=== PATIENT | female | born 1950 | race Caucasian/White ===

== ENCOUNTER 2019-11-07 20:02 | Emergency (ER) | payer MEDICARE, SELFPAY ==
[2019-11-07] VITALS (7 sets, daily range): BP systolic 107–119; BP diastolic 69–81; PULSE 106–114; RESP 15–22; TEMP 37.1–37.2; O2SAT 93–100
--- NOTE | ~2019-11-07 | XR_ITS ---
EXAMINATION: XR chest 1V portable INDICATION: Cough and shortness of breath TECHNIQUE: Portable AP chest at 2002 hours COMPARISON: None available FINDINGS: There are airspace opacities of the right lower lobe. There is subsegmental atelectasis of the left lung base. There is no pleural effusion or pneumothorax. The heart size is normal. Surgical clips are noted in the neck. Cholecystectomy clips are present in the right upper quadrant. Punctate calcifications of the left upper quadrant are consistent with chronic pancreatitis. IMPRESSION: 1. Right lower lobe pneumonia. Reviewed, dictated and finalized at location A.
--- NOTE | ~2019-11-07 | CT_ITS ---
EXAMINATION: CT abdomen pelvis w con INDICATION: Upper abdominal pain TECHNIQUE: Computed tomographic images of the abdomen and pelvis were obtained after the administrati on of 100 cc of Omnipaque 350 intravenous contrast. The dose-length product (DLP) was 323.15 mGy-cm. Automated exposure control and iterative reconstruction technique were employed. COMPARISON: 06/04/2018 FINDINGS: There are airspace opacities of the right lower lobe. The heart size is normal. There has b een interval cholecystectomy. There is mild enlargement of the common bile duct and central intrahepa tic ducts which is likely due to post cholecystectomy state. There is a 2.7 cm cyst of the right hepa tic lobe. Spleen is unremarkable. Punctate calcifications of the pancreas are consistent with chronic pancreatitis. The right adrenal gland is unremarkable. There is a 1.9 cm low-density mass of the lef t adrenal gland without significant change, likely an adenoma. The kidneys are unremarkable. A large volume of colonic stool is present. No pathologically enlarged abdominal or pelvic lymph nodes are id entified. There is no free intraperitoneal gas. There is mild lumbar spondylosis. IMPRESSION: 1. Right lower lobe pneumonia. 2. Changes of interval cholecystectomy. Reviewed, dictated and finalized at location A.
--- NOTE | 2019-11-07 20:20 | ECG_ITS ---
Measurements Intervals [place] Rate: 110 P: 64 SC: 146 QRS: 20 QRSD: 101 T: 70 QT: 317 QTc: 430 Interpretive Statements SINUS TACHYCARDIA INCOMPLETE RIGHT BUNDLE BRANCH BLOCK NONSPECIFIC ST & T-WAVE ABNORMALITY- ANTERLAT/LAT LEADS BASELINE ARTIFACT- I, II, III, AVR, AVL, AVF, V4 ABNORMAL ECG Electronically Signed On 11-08-2019 7:04:49 CDT by Shelton Rojas D.O.
--- NOTE | 2019-11-07 20:30 | ED.ABDPAIN ---
HPI - Abdominal Pain General Chief Complaint: Abdominal Pain Stated Complaint: CHILLS/ N/V Time Seen by Provider: 11/07/19 20:13 History of Present Illness HPI narrative: Abdominal pain since yesterday. Located in the upper abdomen bilaterally. Radiates into the back. Asociated with vomiting and white stuff in her bowel movments. Tried alkaseltezer yesterday with some relief, but but returned today and is worse. She tried norco, which she takes for chronic back pain, without relief. She previously had her gallbladder removed. It is unclear whether she has had a fever. Related Data Allergies Allergy/AdvReac Type Severity Reaction Status Date / Time Penicillins Allergy RASH Verified 08/09/13 11:35 Review of Systems Review of Systems: All systems reviewed & are unremarkable except as noted in HPI and below Constitutional: Constitutional: Denies weakness Cardiovascular: Cardiovascular: Denies chest pain Respiratory: Respiratory: Denies cough and Denies dyspnea Gastrointestinal: Gastrointestinal: Reports abdominal pain, Reports constipation, Denies diarrhea, Reports nausea and Reports vomiting Genitourinary: Genitourinary: Denies hematuria and Denies dysuria Musculoskeletal: Musculoskeletal: Reports back pain Neurologic: Denies dizziness and Denies weakness Psychiatric: Psychiatric: Reports anxiety PMFSH Past Medical History Medical History Back pain Hypothyroidism Surgical History Surgical History Hx of cholecystectomy Social History Social History Gender identity (if verbalized by the patient): Female Exam Const: General: no acute distress and alert Nutritional Appearance: thin Orientation/consciousness: patient oriented x3 HENMT: Mouth: Yes dry mucous membranes Resp: Effort & Inspection: normal respiratory effort Auscultation: clear to auscultation bilaterally Cardio: Rate: tachycardic Rhythm: regular rhythm GI: GI Palp: Yes Soft to palpation and Yes Tenderness to palpation present (GI) (Upper abdomen) Skin: General skin exam: normal color Rashes: no rashes Neuro: General: patient oriented x3 and moves all extremities Speech: normal speech Extrem: General: normal to inspection Course Vital Signs Vital signs: Vital Signs Temperature 37.1 C 11/07/19 20:12 Pulse Rate 114 H 04/20/20 20:12 Respiratory Rate 22 H 11/07/19 20:12 Blood Pressure 112/76 11/07/19 20:12 Pulse Oximetry 98 11/07/19 20:12 Temperature 37.2 C 11/07/19 22:57 Pulse Rate 109 H 11/07/19 20:15 Respiratory Rate 19 11/07/19 20:15 Blood Pressure 112/76 11/07/19 20:15 Pulse Oximetry 93 11/07/19 21:37 MDM - Abdominal Pain MDM Narrative Medical decision making narrative: CT of the abdomen shows RLL infiltrate. She has been persistantly tachycardic and has WBC elevation. She meets sepsis criteria and potentially has COVID-19, although no known exposure. I recommended admission. She said she was not willing to stay in the hospital. I will start PO antibiotics and advised her to return if her symptoms worsen. Differential Diagnosis Differential diagnosis: Likely abdominal pain, calculus of kidney, constipation, diverticulitis, gastroenteritis, pancreatitis and small bowel obstruction Medical Records Attestation: I reviewed the patient's medical records. Lab Data Attestation: I reviewed the patient's lab results. Result diagrams: 11/07/19 20:30 11/07/19 20:30 Labs: Lab Results 11/07/19 11/07/19 11/07/19 Range/Units 20:30 20:30 20:30 WBC 15.0 H (4.5-10.0) K/mm3 RBC 3.92 L (4.2-5.4) M/mm3 Hgb 12.1 (12.0-15.0) g/dL Hct 35.7 L (37.0-47.0) % MCV 91.1 (80-100) fl MCH 30.9 (26-34) pg MCHC 33.9 (32-36) g/dl RDW 14.1 (11.5-14.5) % Plt Count 230 (150-375
[2019-11-07 20:35] LABS: Hematocrit 35.7 % (37.0-47.0); Hemoglobin 12.1 g/dL (12.0-15.0); Mean Corpuscular HGB Conc 33.9 g/dl (32-36); Mean Corpuscular Hemoglobin 30.9 pg (26-34); Mean Corpuscular Volume 91.1 fl (80-100); Platelet Count Result 230 k/mm3 (150-375); Red Blood Count 3.92 M/mm3 (4.2-5.4); Red Cell Distribution Width 14.1 % (11.5-14.5)
[2019-11-07 20:49] LABS: Alanine Aminotransferase 135 U/L (4-35); Albumin Level 3.2 g/dL (3.5-5.1); Alkaline Phosphatase 82 U/L (38-126); Aspartate Amino Transferase 55 U/L (14-36); Bilirubin,Total 0.3 mg/dL (0.2-1.3); Blood Urea Nitrogen 17 mg/dL (7-17); Calcium 8.6 mg/dL (8.4-10.2); Carbon Dioxide 26 mmol/L (22-30); Chloride 97 mmol/L (98-107); Estimated CRCL calculation 50 ml/min; Estimated Glomerular Filt Rate > 60; Glucose 116 mg/dL (65-105); Lipase 60 U/L (23-300); Potassium 3.5 mmol/L (3.4-5.0); Sodium 129 mmol/L (137-145)
[2019-11-07] MEDS: SODIUM CHLORIDE 0.9% IV 1,000 ML 999 ML IV CONT (20:51)
[2019-11-07 20:52] LABS: Band Neutrophils Percent 14 % (0-6); Eosinophils Absolute Manual 0.15 K/mm3 (0.02-0.5); Eosinophils Percent Manual 1 % (0-4); Lymphocytes Absolute Manual 0.75 K/mm3 (1.1-4.5); Lymphocytes Percent Manual 5 % (18-44); Monocytes Percent Manual 2 % (3-9); Neutrophils Percent Manual 78 % (46-73); Total Cells Counted 100
[2019-11-07 20:53] LABS: Platelet Estimate Adequate (Adequate)
[2019-11-07 21:01] LABS: Troponin I < 0.012 ng/mL (0.000-0.034)
[2019-11-07 21:06] LABS: Add Urine Microscopic? YES; Appearance Urine Clear (Clear); Bilirubin Urine Negative (Negative); Blood Urine 1+ (Negative); Color Urine Yellow (Yellow); Glucose Urine UA Negative (Negative); Ketones Urine Negative (Negative); Leukocyte Esterase Ur Negative LEU/UL (Negative); Mucus Urine Rare /lpf; Nitrate Urine Negative (Negative); Protein Urine 1+ mg/dL (Negative); Specific Grav Ur 1.014 (1.001-1.035); Squamous Epithelial Cell Urine Rare /hpf (Few); Urobilinogen Urine Negative mg/dL (<2.0); WBC Urine 0-3 /hpf
--- NOTE | 2019-11-07 21:26 | PC.NURSE ---
Family member asking to speak with Dr. Conte, Dr. Conte aware.
--- NOTE | 2019-11-07 21:38 | PC.NURSE ---
Patient placed on 2L NC at this time. Patient's O2 began to range from 88%-91%, EDP Dg notified.
--- NOTE | 2019-11-07 22:21 | PC.NURSE ---
Patient on RA, O2 ranging from 93%-100%
[2019-11-07] MEDS: MORPHINE SULFATE 2 MG/ML INJ IV PUSH (22:27)
--- NOTE | 2019-11-07 22:30 | PC.NURSE ---
Patient states she does not want to be admitted and would rather be in pain at home. EDP Dg xiao.
[2019-11-07] MEDS: CEFDINIR 300 MG CAPSULE PO (22:35)
[2019-11-07] MEDS: AZITHROMYCIN 250 MG TABLET 500 MG PO (22:36)
[2019-11-08 14:10] LABS: SARS-CoV-2 RNA PCR Negative
== END 2019-11-07 23:22 | disposition home or self-care (01) ==
PROVIDERS: Emergency Provider Emergency Medicine; PCP Emergency Medicine
DX: J18.9 Pneumonia, unspecified organism (principal); Z20.828 Contact with and (suspected) exposure to other viral communicable diseases; E03.9 Hypothyroidism, unspecified; R00.0 Tachycardia, unspecified; I45.10 Unspecified right bundle-branch block; R94.31 Abnormal electrocardiogram [ECG] [EKG]
CPT/HCPCS: 36415; 71045; 74177; 80053; 81001; 83605; 83690; 84484; 85025; 87635; 93005; 96361; 96374; 96375; 99284; A9270; C9803; J2270; J3010; J7030; Q9967; U0003

== ENCOUNTER 2019-11-14 12:45 | Outpatient (CLI) | payer MEDICARE, SELFPAY ==
--- NOTE | ~2019-11-14 | XR_ITS ---
EXAMINATION: XR chest 2V DATE: 11/14/2019 13:11 INDICATION: Pneumonia. TECHNIQUE: Frontal and lateral views of the chest were obtained. COMPARISON: Chest single view 11/07/2019, CT abdomen and pelvis 11/07/2019 FINDINGS: There are airspace opacities at right lung base. There is mild atelectasis at left lung bas e. There is mild scarring at the lung apices. No pleural effusion or pneumothorax. The heart size is normal. There are surgical clips in the neck and right abdomen. IMPRESSION: 1. Airspace opacities at right lung base with improvement, consistent with pneumonia. Reviewed, dictated and finalized at location A. IMPRESSION: 1. Airspace opacities at right lung base with improvement, consistent with pneu monia.
[2019-11-14 13:45] LABS: Basophils Absolute Auto 0.1 K/mm3 (0.0-0.1); Basophils Percent Auto 0.6 % (0.2-1.2); Eosinophils Absolute Auto 0.2 K/mm3 (0-0.3); Eosinophils Percent Auto 1.1 % (0-4.4); Hematocrit 32.7 % (37.0-47.0); Immature Granulocyte Absolute 0.39 K/mm3 (0.00-0.031); Immature Granulocyte Percent A 2.7 % (0-0.5); Lymphocytes Absolute Auto 1.66 K/mm3 (0.9-3.2); Lymphocytes Percent Auto 11.5 % (18.3-44.2); Mean Corpuscular HGB Conc 33.6 g/dl (32-36); Mean Corpuscular Hemoglobin 30.6 pg (26-34); Mean Corpuscular Volume 91.1 fl (80-100); Monocytes Absolute Auto 0.6 K/mm3 (0.1-0.6); Monocytes Percent Auto 4.1 % (2.6-8.5); Neutrophils Absolute Auto 11.6 K/mm3 (1.3-6.7); Platelet Count Result 453 k/mm3 (150-375); Red Blood Count 3.59 M/mm3 (4.2-5.4); Red Cell Distribution Width 14.7 % (11.5-14.5); White Blood Count 14.5 K/mm3 (4.5-10.0)
[2019-11-14 13:57] LABS: Alanine Aminotransferase 28 U/L (4-35); Alkaline Phosphatase 69 U/L (38-126); Aspartate Amino Transferase 30 U/L (14-36); Bilirubin,Total 0.5 mg/dL (0.2-1.3); Blood Urea Nitrogen 9 mg/dL (7-17); Calcium 8.5 mg/dL (8.4-10.2); Carbon Dioxide 31 mmol/L (22-30); Chloride 98 mmol/L (98-107); Estimated Glomerular Filt Rate > 60; Glucose 92 mg/dL (65-105); Phosphorus 4.7 mg/dL (2.5-4.5); Potassium 4.2 mmol/L (3.4-5.0); Sodium 135 mmol/L (137-145)
[2019-11-14 15:15] LABS: Free T4 Free Thyroxine Reflex 1.49 ng/dL (0.78-2.19)
[2019-11-14 16:00] LABS: Total Triiodothyronine (T3) 0.56 NG/ML (0.97-1.69)
[2019-11-16 21:10] LABS: NIL 0.01 IU/mL; Quantiferon TB Plus, 1T NEGATIVE (NEGATIVE); TB1-NIL 0.03 IU/mL; TB2-NIL 0.01 IU/mL
== END 2019-11-14 12:46 | disposition home or self-care (01) ==
PROVIDERS: PCP Emergency Medicine; Visit Provider Emergency Medicine
DX: J18.9 Pneumonia, unspecified organism (principal); E03.9 Hypothyroidism, unspecified; E87.1 Hypo-osmolality and hyponatremia; E88.09 Other disorders of plasma-protein metabolism, not elsewhere classified; K76.9 Liver disease, unspecified; R61 Generalized hyperhidrosis
CPT/HCPCS: 36415; 71046; 80069; 80076; 84439; 84443; 84480; 85025; 86480

== ENCOUNTER 2019-11-30 10:44 | Outpatient (CLI) | payer MEDICARE, SELFPAY ==
--- NOTE | ~2019-11-30 | XR_ITS ---
XR chest 2V DATE: 11/30/2019 11:04 INDICATION: Dry cough, shortness of breath. Nausea and vomiting. Infiltrate. TECHNIQUE: PA and lateral views COMPARISON: 11/14/2019 2 view chest 11/07/2019 portable AP chest FINDINGS: There is interval mild improvement of right basilar infiltrate since 11/14/2019 and 0. Bilateral hyperinflation, consistent with obstructive airways disease. Normal heart size. Aortic arch calcification. Diffuse osteopenia. Postoperative changes are noted in the lower cervical area. IMPRESSION: Serial improvement of right basilar infiltrate Reviewed, dictated and finalized at location A.
== END 2019-11-30 10:45 | disposition home or self-care (01) ==
PROVIDERS: PCP Emergency Medicine; Visit Provider Emergency Medicine
DX: J18.9 Pneumonia, unspecified organism (principal)
CPT/HCPCS: 71046

== ENCOUNTER 2019-12-15 12:37 | Outpatient (CLI) | payer MEDICARE, SELFPAY ==
--- NOTE | ~2019-12-15 | XR_ITS ---
EXAMINATION: XR chest 2V DATE: 12/15/2019 12:50 INDICATION: Pneumonia TECHNIQUE: PA and lateral views of the chest are obtained. COMPARISON: 11/30/2019 FINDINGS: The lungs are hyperinflated but free of acute opacities. Right lower lobe airspace opacitie s have nearly completely resolved. There is no pleural effusion or pneumothorax. The cardiomediastina l silhouette is normal. There is mild thoracic spondylosis. There is symmetric scarring of the lung a pices. Surgical clips are noted in the neck. IMPRESSION: 1. Near complete resolution of right lower lobe airspace opacities without acute cardiopulmonary abno rmality, consistent with resolving pneumonia. Reviewed, dictated and finalized at location A. IMPRESSION: 1. Near complete resolution of right lower lobe airspace opacities without acut e cardiopulmonary abnormality, consistent with resolving pneumonia.
== END 2019-12-15 12:38 | disposition home or self-care (01) ==
LOC: ANHIMG 12:37
PROVIDERS: PCP Emergency Medicine; Visit Provider Emergency Medicine
DX: J18.9 Pneumonia, unspecified organism (principal); R91.8 Other nonspecific abnormal finding of lung field
CPT/HCPCS: 71046

== ENCOUNTER 2020-04-28 08:59 | Outpatient (CLI) | payer MEDICARE, SELFPAY ==
--- NOTE | ~2020-04-28 | CT_ITS ---
EXAMINATION: CT chest wo/w con DATE: 04/28/2020 10:07 INDICATION: Chest pain TECHNIQUE: Computed tomography (CT) of the chest was performed without intravenous contrast. The dose -length product was 269.71 mGy-cm. Automated exposure control and iterative reconstruction technique were employed. COMPARISON: CT dated 04/28/2020 FINDINGS: Biapical pleural thickening/scarring. No endobronchial lesions. Bibasilar dependent atelect asis. Mild paraseptal emphysema. There is atherosclerosis. Heart size normal. No significant pleural or pericardial effusion. No thoracic lymphadenopathy. There are liver cysts. Status post cholecystect anand. There is a groundglass nodule in the superior segment left lower lobe measuring 9 mm on coronal reconstructions. No endobronchial lesions. No pneumothorax. There is upper lumbar spondylosis. No acu te osseous abnormality IMPRESSION: 1. Some solid 9 mm left lower lobe nodule, likely benign. Follow-up CT chest in 12 months recommended . 2: Biapical pleural thickening/scarring, likely chronic. Reviewed, dictated and finalized at location A. IMPRESSION: 1. Some solid 9 mm left lower lobe nodule, likely benign. Follow-up CT chest in 12 months recommended. 2: Biapical pleural thickening/scarring, likely chronic.
[2020-04-28 11:01] LABS: Estimated Glomerular Filt Rate > 60
== END 2020-04-28 09:00 | disposition home or self-care (01) ==
LOC: ANHIMG 09:04
PROVIDERS: PCP Emergency Medicine; Visit Provider Emergency Medicine
DX: R07.9 Chest pain, unspecified (principal); R91.8 Other nonspecific abnormal finding of lung field
CPT/HCPCS: 71270; Q9967

== ENCOUNTER 2020-08-24 08:58 | Outpatient (CLI) | payer MEDICARE, SELFPAY ==
--- NOTE | ~2020-08-24 | MM_ITS ---
EXAMINATION: MM screening celia BI w mi HISTORY: Screening mammogram TECHNIQUE: Craniocaudal and mediolateral oblique 3-D tomosynthesis images were obtained and synthetic 2-D images were generated. CAD analysis was submitted and interpreted. COMPARISON: No prior mammogram is available for comparison at this institution. BREAST PARENCHYMAL COMPOSITION: The breasts are extremely dense, which lowers the sensitivity of mamm ography. FINDINGS: There is no evidence of suspicious mass, calcification, or architectural distortion to sugg est malignancy in either breast. IMPRESSION: 1. No mammographic evidence of malignancy. 2. Recommend routine screening mammography in one year. BI-RADS Category 1: Negative Reviewed, dictated and finalized at location A. NO RUNNER
== END 2020-08-24 08:59 | disposition home or self-care (01) ==
PROVIDERS: PCP Emergency Medicine; Visit Provider Emergency Medicine
DX: Z12.31 Encounter for screening mammogram for malignant neoplasm of breast (principal)
CPT/HCPCS: 77063; 77067

== ENCOUNTER → 2021-01-24 16:29 | Outpatient (CLI) | payer MEDICARE, SELFPAY ==
--- NOTE | ~2021-01-24 | XR_ITS ---
EXAMINATION: XR foot RT min 3V DATE: 01/24/2021 16:44 INDICATION: Right foot pain and injury. TECHNIQUE: 4 views of right foot were obtained. COMPARISON: None. FINDINGS: There is moderate hallux valgus. No acute fracture. There is a fragment of heterotopic ossi fication distal to lateral malleolus, likely chronic. There is mild osteoarthritis of first metatarso phalangeal joint and some of the interphalangeal joints. There is an enthesophyte at posterior aspec t of calcaneal tuberosity. IMPRESSION: 1. Moderate hallux valgus. 2. Mild polyarticular osteoarthritis. Reviewed, dictated and finalized at location A.
== END ==
PROVIDERS: PCP Emergency Medicine; Visit Provider Emergency Medicine
DX: M79.671 Pain in right foot (principal); M20.11 Hallux valgus (acquired), right foot; M19.071 Primary osteoarthritis, right ankle and foot
CPT/HCPCS: 73630

== ENCOUNTER 2021-09-06 12:30 | Outpatient (CLI) | payer MEDICARE, SELFPAY | END 2021-09-06 12:31 | disposition home or self-care (01) | PROVIDERS: PCP Emergency Medicine; Visit Provider Emergency Medicine | DX: H90.3 Sensorineural hearing loss, bilateral (principal) | CPT/HCPCS: 92557; 92567 ==

== ENCOUNTER 2022-03-03 13:16 | Outpatient (CLI) | payer MEDICARE, SELFPAY ==
--- NOTE | ~2022-03-03 | CT_ITS ---
EXAMINATION: CT diagnostic chest wo con DATE: 03/03/2022 13:36 INDICATION: Solitary pulmonary nodule TECHNIQUE: Computed tomography (CT) of the chest was performed without intravenous contrast. The dose -length product (DLP) was 39.99 mGy-cm. Automated exposure control and iterative reconstruction techn ique were employed. COMPARISON: 04/28/2020 FINDINGS: There is a 1.5 cm nodule of the left lower lobe with interval increase in size. There is a stable 5 mm nodule in the left lower lobe on image 37. There is a 10 mm groundglass nodule of the rig ht middle lobe on image 76. No pleural effusion or pneumothorax. No pathologically enlarged thoracic lymph nodes are identified. The heart size is normal. There is mild thoracic spondylosis. IMPRESSION: 1. Left lower lobe nodule concerning for primary bronchogenic carcinoma. CT-guided biopsy is recommen ded. Reviewed, dictated and finalized at location A. IMPRESSION: 1. Left lower lobe nodule concerning for primary bronchogenic carcinoma. CT-olivia ded biopsy is recommended.
== END 2022-03-03 13:17 ==
LOC: MICIMG 13:18
PROVIDERS: PCP Emergency Medicine; Visit Provider Emergency Medicine
DX: R91.1 Solitary pulmonary nodule (principal)
CPT/HCPCS: 71250

== ENCOUNTER 2022-03-21 15:53 | Outpatient (CLI) | payer MEDICARE, SELFPAY ==
[2022-03-21 16:38] LABS: Prothrombin Time 12.7 Seconds (11.1-14.7)
== END 2022-03-21 15:54 | disposition home or self-care (01) ==
PROVIDERS: PCP Emergency Medicine; Visit Provider Internal Medicine Pulmonary Disease
DX: R91.1 Solitary pulmonary nodule (principal)
CPT/HCPCS: 36415; 85610

== ENCOUNTER 2022-04-09 13:20 | Outpatient (CLI) | payer MEDICARE, SELFPAY ==
--- NOTE | 2022-04-09 17:31 | WPDSIXMINUTE ---
Six Minute Walk Procedure Procedure Performed Pulmonary Stress Test (6 min walk) Six Minute Walk Six Minute Walk: This is a 6 minute walk test. The test was performed and interpreted in accordance with the 2014 ERS/ATS task force guidelines. Findings: The patient's resting room air oxygen saturation measured by pulse oximetry was 94% and heart rate was 77 bpm. Patient ambulated for 457 meters and oxygen saturation remained 92 to 96%. Heart rate at the end of the study was 97 bpm. The patient did not qualify for supplemental oxygen at rest or with ambulation. There are no prior studies for comparison.
--- NOTE | 2022-04-09 17:32 | P.PCNPFT_ITS ---
PFT Procedure Performed PFT Procedure Performed Spirometry with Pre/Post Bronchodilator Plethysmography (Lung Vol) Diffusing Cap (DLCO) Flow Vol Loop PFT Interpretation This is a pulmonary function test with pre and post-bronchodilator spirometry, plethysmography and diffusing capacity. The test was performed and results interpreted in accordance with the 2019 and 2005 ATS/ERS Task Force guidelines respectively using the Global Lung Function Initiative-2012 reference equations. Patient demonstrated good effort and cooperation. Reproducibility criteria were met. The quality of the pre bronchodilator spirometry maneuver was Grade A and post bronchodilator spirometry maneuver was Grade A. Findings: Spirometry: There is flattening of the expiratory flow tracing in the pre bronchodilator but not in the post bronchodilator maneuvers. The contour of the inspiratory flow tracing is normal. The pre bronchodilator FVC is 3.62 L, 110% predicted. The pre bronchodilator FEV1 is 1.39 L, 55% predicted. The pre bronchodilator FEV1: FVC ratio is 38%. The post bronchodilator FVC is 3.87 L, representing a 7% increase. The post bronchodilator FEV1 is 2.15 L, representing a 55% increase. The post bronchodilator FEV1: FVC ratio is 56%. Plethysmography: The total lung capacity is 6.64 L, 117% predicted. The functional residual capacity is 4.74 L, 145% predicted. The residual volume is 3.02 L, 126% predicted. Diffusing capacity: The diffusing capacity unadjusted for hemoglobin and carb oxyhemoglobin is 21.2, 96% predicted. The diffusing capacity adjusted for alveolar volume is 3.32, 81% predicted. Impression: There is a moderately severe obstructive abnormality with significant improvement after inhaling a single dose of albuterol. Hyperinflation is present as demonstrated by the increase in functional residual capacity and is consistent with an obstructive abnormality. The diffusing capacity is normal. There are no prior studies for comparison
== END 2022-04-09 13:21 | disposition home or self-care (01) ==
PROVIDERS: PCP Emergency Medicine; Visit Provider Internal Medicine Pulmonary Disease
DX: R06.02 Shortness of breath (principal); F17.200 Nicotine dependence, unspecified, uncomplicated; R91.1 Solitary pulmonary nodule
CPT/HCPCS: 94060; 94618; 94726; 94729

== ENCOUNTER 2022-04-11 01:49 | Outpatient (CLI) | payer MEDICARE, SELFPAY ==
[2022-04-03 11:30] VITALS: BMI 18.6
--- NOTE | 2022-04-03 11:30 | PC.NURSE ---
Pre Radiology instructions Report to the Outpatient Waiting Room, entrance under the green pavilion located off [facility], at time _0900_ on date _[id number]_. Procedure Time: _1100_. YOU MAY BE MONITORED AT HOSPITAL FOR UP TO 4 HOURS AFTER YOUR PROCEDURE. One visitor will be allowed to accompany the patient into the hospital. The visitor will be instructed to remain with patient at all times or leave the building due to restrictions. We will allow the visitor to come back to the postoperative area when patient is ready. NO children visitors allowed at this time. You and your visitor will be asked to self-screen and do not enter if you have any COVID symptoms. A mask is required within the hospital. Patients are to have no food or drink 6 hours prior to procedure time Driving will be restricted after the procedure, you must have a person to drive you home. Labs will be drawn in preop area and once reviewed, you will be taken to radiology area for procedure. When the procedure is completed, you will be taken to outpatient where you will be monitored for several hours. You may have one visitor in this area. Other than holding anti-coagulants, patient may take other medication(s) as scheduled. Prior to your appointment date patients are instructed to hold anti-coagulants after discussing with ordering provider to stop. If unable to discontinue anti-coagulants please notify radiologist. No aspirin or warfarin (Coumadin) for 7 days prior to the procedure. No clopidogrel (Plavix), ticagrelor (Brilinta), prasugrel (Effient) or dabigatran (Pradaxa) for 5 days prior to the procedure. No rivaroxaban (Xarelto), apixaban (Eliquis), dipyridamole (Aggrenox or Persantine) or cilostazol (Pletal) for 2 days prior to the procedure. Medications to discontinue per physician: None Date to take last dose: Please leave all valuables, including medications, at home the day of procedure. The hospital will not accept responsibility for valuables. Wear comfortable, loose fitting clothing. Follow any additional instructions given to you from ordering provider. Telephone instructions given to _Patient__and asked if any additional questions and then verbalized understanding. Patient advised to call scheduling provider office or registration scheduling [phone] if any additional questions.
[2022-04-11] VITALS (7 sets, daily range): BP systolic 124–144; BP diastolic 67–92; PULSE 69–79; RESP 16–20; TEMP 36.7; O2SAT 98–100
--- NOTE | ~2022-04-11 | XR_ITS ---
EXAMINATION: XR chest 1V portable DATE: 04/11/2022 12:49 INDICATION: Left lung nodule status post percutaneous biopsy. TECHNIQUE: A single frontal view of the chest was obtained. COMPARISON: Chest single view at 11:49 AM FINDINGS: There is a nodule in left lower lobe. There is mild scarring at the lung apices. No pleural effusion or pneumothorax. The heart size is normal. There are surgical clips in the neck. IMPRESSION: 1. Nodule in left lung lower lobe suspicious for primary bronchogenic carcinoma. Reviewed, dictated and finalized at location A. IMPRESSION: 1. Nodule in left lung lower lobe suspicious for primary bronchogenic carcinoma .
--- NOTE | ~2022-04-11 | XR_ITS ---
EXAMINATION: XR chest 1V portable DATE: 04/11/2022 14:53 INDICATION: Left lung nodule status post percutaneous biopsy. TECHNIQUE: A single frontal view of the chest was obtained. COMPARISON: Chest single view at 12:45 PM FINDINGS: There is a nodule in left lung lower lobe. There is mild scarring at the lung apices. No pl eural effusion or pneumothorax. The heart size is normal. There are surgical clips in the neck. IMPRESSION: 1. Nodule in left lung lower lobe suspicious for primary bronchogenic carcinoma. Reviewed, dictated and finalized at location A. IMPRESSION: 1. Nodule in left lung lower lobe suspicious for primary bronchogenic carcinoma .
--- NOTE | ~2022-04-11 | XR_ITS ---
EXAMINATION: XR chest 1V DATE: 04/11/2022 11:51 INDICATION: Left lung nodule status post percutaneous biopsy. TECHNIQUE: A single frontal view of the chest was obtained. COMPARISON: Chest 2 views 12/15/2019, chest CT 03/03/2022 FINDINGS: There is mild scarring at the lung apices. There is a nodule in left lung lower lobe. No pl eural effusion or pneumothorax. The heart size is normal. There are surgical clips in the neck. Surgi jefferson clips in the right upper quadrant are likely from cholecystectomy. IMPRESSION: 1. Nodule in left lung lower lobe suspicious for primary bronchogenic carcinoma. Reviewed, dictated and finalized at location A. IMPRESSION: 1. Nodule in left lung lower lobe suspicious for primary bronchogenic carcinoma .
--- NOTE | ~2022-04-11 | CT_ITS ---
EXAMINATION: CT biopsy lung w/imaging DATE: 04/11/2022 11:56 INDICATION: Left lung lower lobe nodule. TECHNIQUE: The procedure including the risks, benefits, and alternatives and possibility of chest tub e placement were discussed with the patient. Risks discussed included infection, hemorrhage, approxim ately 1/3 risk of pneumothorax, approximately 1/10 risk of pneumothorax severe enough to warrant ches t tube placement, and rarely . The patient understood the risks and agreed to proceed. The patie nt was placed prone. The skin overlying the left lung was prepped and draped in sterile fashion. An esthetic was administered with 1% lidocaine subcutaneously. A 19 gauge outer needle was advanced und er CT guidance to the lesion of interest. A 20 gauge core biopsy needle was then used to obtain 3 cor e biopsy specimens. The needle was removed and the entry site was cleaned and dressed. The mA was adj usted according to patient size. Iterative reconstruction technique was employed. The dose-length pro duct was 124.30 mGy-cm. There were no immediate complications. FINDINGS: CT images demonstrate the outer needle tip adjacent to a 1.5 cm nodule in left lung lower l obe. IMPRESSION: 1. CT-guided core needle biopsy of a 1.5 cm nodule in left lung lower lobe. Reviewed, dictated and finalized at location A.
[2022-04-11] MEDS: SODIUM CHLORIDE 0.9% IV 1,000 ML 30 ML IV CONT (09:31)
[2022-04-11 09:33] LABS: Mean Platelet Volume 8.9 fl (7.4-10.4); Platelet Count Result 279 k/mm3 (150-375)
[2022-04-11 09:46] LABS: Prothrombin Time 13.1 Seconds (11.1-14.7)
--- NOTE | 2022-04-11 15:19 | SUR.PHASEII ---
1505 - DR. CUNNINGHAM CALLED AND OKAYED TO DISCHARGE HOME
== END 2022-04-11 15:10 | disposition home or self-care (01) ==
PROVIDERS: PCP Emergency Medicine; Referring Provider Internal Medicine Pulmonary Disease; Visit Provider Radiology Diagnostic Radiology
PROC: BB24ZZZ Computerized Tomography (CT Scan) of Bilateral Lungs (ICD-10-PCS; CPT 32408; principal; 2022-04-11 11:00)
DX: R91.1 Solitary pulmonary nodule (principal)
CPT/HCPCS: 32408; 36415; 71045; 85049; 85610; 88305; 88342; J7030

== ENCOUNTER → 2023-03-27 13:29 | Outpatient (CLI) | payer MEDICARE, SELFPAY ==
--- NOTE | ~2023-03-27 | DEXA_ITS ---
Bone Density Report Name: RENÉE BROWN Age: 73 Sex: Female Ethnicity: White Date of : 1950 Indication: postmenopausal; screening for osteoporosis; hysterectomy; Referring Provider: JAMISON KO Study: Bone densitometry was performed. Exam Date: March 27, 2023 Accession number: [id number] Bone Density: Region BMD T-score Z-score Classification AP Spine (L1-L4) 0.960 -0.8 1.4 Normal Femoral Neck (Left) 0.797 -0.5 1.4 Normal Total Hip (Left) 0.825 -1.0 0.6 Normal Femoral Neck (Right) 0.815 -0.3 1.6 Normal Total Hip (Right) 0.829 -0.9 0.6 Normal Total Hip Mean 0.827 -1.0 0.6 Normal World Health Organization criteria for BMD impression classify patients as: Normal (T-score at or above -1.0), Osteopenia (T-score between -1.0 and -2.5), or Osteoporosis (T-score at or below -2.5). 10-year Fracture Risk: FRAX not reported because: All T-scores for Spine Total, Hip Total, Femoral Neck at or above -1.0 Clinical Information Provided by Patient: Smokes Has used the following medications: Vitamin D, MTV Has the following medical conditions: Hysterectomy, lung cancer 2021 Patient maximum height was 67 Menopause Age: 26 No regular weight bearing exercise Does not regularly consume dairy products Drinks caffeinated beverages Onset of menses at age 12.5 Number of children 2 Impression: The patient has normal bone mass. The patient has risk factors, including: smoking. Discussion: BONE DENSITY IS ABOVE THE MINIMUM DESIRABLE LEVEL AT ALL SKELETAL SITES TESTED. This patient?s bone mineral density is above the minimum desirable level (T-score -1.0 or better) at all sites measured. The patient should follow a healthful lifestyle (good nutrition with adequate calcium and vitamin D, and appropriate weight-bearing exercise). Follow-Up: Consider repeating this study in 5 years or sooner if there is some new clinical indication. Reported by: CARLOS ALBERTO on 03/27/2023 2:28:00 PM. Reviewed, dictated and finalized at location ABhavana SEAY
--- NOTE | ~2023-03-27 | MM_ITS ---
EXAMINATION: MM screening [facility] BI w mi HISTORY: Screening mammogram TECHNIQUE: Craniocaudal and mediolateral oblique 3-D tomosynthesis images were obtained and synthetic 2-D images were generated. CAD analysis was submitted and interpreted. COMPARISON: August 24, 2020 bilateral screening mammogram BREAST PARENCHYMAL COMPOSITION: The breasts are extremely dense, which lowers the sensitivity of mamm ography. FINDINGS: There is no evidence of suspicious mass, calcification, or architectural distortion to sugg est malignancy in either breast. There has been no suspicious interval change. IMPRESSION: 1. No mammographic evidence of malignancy. 2. Recommend routine screening mammography in one year. BI-RADS Category 1: Negative Reviewed, dictated and finalized at location A.
== END ==
PROVIDERS: PCP Emergency Medicine; Visit Provider Emergency Medicine
DX: Z12.31 Encounter for screening mammogram for malignant neoplasm of breast (principal); Z78.0 Asymptomatic menopausal state
CPT/HCPCS: 77063; 77067; 77080

== ENCOUNTER 2024-12-19 13:03 | Outpatient (CLI) | payer MEDICARE, SELFPAY ==
--- NOTE | ~2024-12-19 | MM_ITS ---
EXAMINATION: MM screening [facility] BI w mi INDICATION: Asymptomatic, referred for screening mammogram COMPARISON: 03/27/2023 and 08/24/2020 TECHNIQUE: Digital breast tomosynthesis craniocaudal and mediolateral oblique views of Both breasts w ere obtained with computer-aided detection to assist in interpretation of the study. FINDINGS: The breasts are extremely dense, which lowers the sensitivity of mammography. No focal dominant mass, architectural distortion, or suspicious microcalcifications are identified. There are no features to suggest malignancy. IMPRESSION: No evidence of malignancy in the breast. Recommend continued screening mammography BI-RADS 1, NEGATIVE Reviewed, dictated and finalized at location B.
== END 2024-12-19 13:04 | disposition home or self-care (01) ==
PROVIDERS: PCP Emergency Medicine; Visit Provider Emergency Medicine
DX: Z12.31 Encounter for screening mammogram for malignant neoplasm of breast (principal)
CPT/HCPCS: 77063; 77067